=== PATIENT | female | born 1975 | race African-American/Black ===

== ENCOUNTER 2018-02-24 17:50 | Emergency (ER) | payer OTHER ==
[~2018-02-24] VITALS: Ht 167.6 cm; Wt 86.0 kg
[2018-02-24 20:40] VITALS: BP 162/89
== END 2018-02-24 23:36 | disposition home or self-care (01) ==
LOC: ER 23:34
DX: J06.9 Acute upper respiratory infection, unspecified (principal); I10 Essential (primary) hypertension
CPT/HCPCS: 99283; Z7610